=== PATIENT | female | born 1985 | race Caucasian/White ===

== ENCOUNTER → 2017-05-26 | Outpatient (CLI) | payer BC ==
[~2017-05-26] MED LIST: OXYC1TAB63 PO; PREN1CAP28 PO
== END ==
LOC: HPND 07:42
PROVIDERS: ATTEND Obstetrics & Gynecology
DX: O30.043 Twin pregnancy, dichorionic/diamniotic, third trimester (principal); O24.414 Gestational diabetes mellitus in pregnancy, insulin controlled; Z3A.00 Weeks of gestation of pregnancy not specified
CPT/HCPCS: 76816

== ENCOUNTER → 2017-06-15 | Emergency (ER) | payer BC ==
[2017-06-15] VITALS (9 sets, daily range): BP systolic 130–148; BP diastolic 83–100; PULSE 102–109; RESP 18; TEMP 98.5
[2017-06-15 14:20] LABS: HEMATOCRIT 33.6 % (35.0-46.0); MEAN CELL VOLUME 76.9 FL (80.0-100.0); MEAN CORPUSCULAR HEMOGLOBIN 24.3 PG (27.0-34.0); MEAN CORPUSCULAR HGB CONC 31.6 % (32.0-36.0); PLATELET COUNT 211 TH/MM3 (150-450); RED BLOOD COUNT 4.37 MIL/MM3 (4.00-5.30); RED CELL DISTRIBUTION WIDTH 16.4 % (11.6-17.2); REVIEW FLAG FINAL; WHITE BLOOD COUNT 8.8 TH/MM3 (4.0-11.0)
[2017-06-15 14:29] LABS: BACTERIA, URINE RARE /hpf; BLOOD, URINE NEG (NEG); COMMENT (UR) CULT NOT INDICATED; CULTURE IF INDICATED CULT NOT INDICATED; GLUCOSE,URINE NEG (NEG); KETONE, URINE NEG (NEG); NITRITE,URINE NEG (NEG); PH, URINE 6.5 (5.0-8.5); SQUAMOUS EPITHELIAL CELL URINE <1 /hpf (0-5); URINE COLOR YELLOW (YELLW/STRAW)
[2017-06-15 14:33] LABS: ANION GAP 10 MEQ/L (5-15); AST (GOT) 18 U/L (15-37); BICARBONATE 20.4 MEQ/L (21.0-32.0); BLOOD UREA NITROGEN 9 MG/DL (7-18); CHLORIDE 107 MEQ/L (98-107); GLOMERULAR FILTRATION RATE 119 ML/MIN (>89); SODIUM (NA) 137 MEQ/L (136-145); URIC ACID 5.5 MG/DL (2.6-6.0)
[2017-06-15 14:34] LABS: ALT (GPT) 11 U/L (10-53)
[2017-06-15 14:37] LABS: ALKALINE PHOSPHATASE 174 U/L (45-117); TOTAL BILIRUBIN ADULT 0.7 MG/DL (0.2-1.0)
--- NOTE | 2017-06-15 14:46 | PD ---
HPI Chief Complaint Blurred vision Travel History International Travel<30 Days: No Contact w/Intl Traveler<30Days: No Known Affected Area: No History of Present Illness HPI 32-year-old 001, IUP at 36 weeks care complicated by a surrogate twin , A1 diabetes mellitus, history of knee surgery, prior delivery The patient presents complaining of a 30 minute period of blurred vision that started at 9 AM when she was walking around [place], doing her shopping. She reports this as blurred vision with visual spots. She denies any right upper quadrant or epigastric pain. She denies any headache at this time. She reports that shortly after this happened her left arm felt a little numb in her fingers were numb but this has entirely resolved. She denies any leaking fluid or vaginal bleeding. She denies any contractions or cramping. She reports good movement. Weeks Gestation: 36 Para: 1 : 2 History Past Medical History Medical History: Denies Significant Hx Obstetric History Obstetric History 001 Full-Term section Past Surgical History Narrative Surgical Knee surgery section Family History Narrative Family History [place], CAD, DM Social History Alcohol Use: No Tobacco Use: No Substance Abuse: No Review of Systems Except as stated in HPI: all other systems reviewed are Neg Eyes: Blurred Vision (now resolved), Visual changes (now resolved) Neurologic: Other (left arm numbness and finger tingling resolved) Physical Exam Vital Signs Date Time Temp Pulse Resp B/P (MAP) Pulse Ox O2 Delivery O2 Flow Rate FiO2 06/15/17 14:16 98.5 06/15/17 14:15 107 18 130/83 (99) 06/15/17 14:15 102 06/15/17 13:10 103 06/15/17 13:05 105 06/15/17 13:00 105 06/15/17 13:00 18 06/15/17 13:00 106 146/99 (115) 06/15/17 12:55 104 06/15/17 12:53 107 148/100 (116) 06/15/17 12:50 102 06/15/17 12:45 109 Narrative GENERAL: Well-nourished, well-developed patient. SKIN: Warm and dry. HEAD: Normocephalic and atraumatic. EYES: No scleral icterus. No injection or drainage. ENT: No nasal drainage noted. Mucous membranes pink. Airway patent. NECK: Supple, trachea midline. No JVD. CARDIOVASCULAR: Regular rate and rhythm without murmurs, gallops, or rubs. RESPIRATORY: Breath sounds equal bilaterally. No accessory muscle use. BREASTS: Deferred ABDOMEN/GI: Abdomen soft, non-tender, bowel sounds present, no rebound, no guarding Gravid GENITOURINARY: External Genitalia: intact and normal in appearance. Normal BUS glands. Physiologic discharge. Grossly normal rugae. No cervical or vaginal masses appreciated. SVE heart tones: Both fetuses are noted to have reassuring testing with heart tones baseline in the 130s to 140s, moderate long-term variability, good accelerations, no decelerations noted for either fetus both fetuses have a reactive heart rate tracing EXTREMITIES: No cyanosis or edema. BACK: Nontender without obvious deformity. No CVA tenderness. NEUROLOGICAL: Awake and alert. Motor and sensory grossly within normal limits. Five out of 5 muscle strength in all muscle groups. Normal speech. Musculoskeletal: Grossly normal range of motion, gait, muscle strength Psychiatric: grossly normal memory and affect Data Data Orders Orders Vital Signs (Adult) .ON ADMISSION (06/15/17 13:04) ^ Labor Status (06/15/17 13:04) Urinalysis - C+S If Indicated (06/15/17 13:04) ^ Non Stress Test (06/15/17 13:04) Cbc No Diff, Includes Plts (06/15/17 13:04) Comprehensive Metabolic Panel (06/15/17 13:04) Uric Acid (06/15/17 13:04) Protein Creat Ratio, Random Ur (06/15/17 13:04) Labs Laboratory Tests Test 06/15/17 12:45 06/15/17 13:08 Urine Color YELLOW Urine Turbidity CLEAR Urine pH 6.5 Urine Specific [place] 1.012 Urine Protein NEG Urine Glucose (UA) NEG Urine Ketones NEG Urine Occult Blood NEG Urine Nitrite NEG Urine Bilirubin NEG Urine Urobilinogen LESS THAN 2.0 Urine Leukocyte Esterase NEG Urine Squamous Epithelial Cells <1 Urine Bacteria RARE Microscopic Urinalysis Comment CULT NOT INDICATED White Blood Count 8.8 Red Blood Count 4.37 Hemoglobin 10.6 Hematocrit 33.6 Mean Corpuscular Volume 76.9 Mean Corpuscular Hemoglobin 24.3 Mean Corpuscular Hemoglobin Concent 31.6 Red Cell Distribution Width 16.4 Platelet Count 211 Mean Platelet Volume 8.9 Blood Urea Nitrogen 9 Creatinine 0.58 Random Glucose 62 Total Protein 6.2 Albumin 2.3 Calcium Level 9.7 Uric Acid 5.5 Alkaline Phosphatase 174 Aspartate Amino Transf (AST/SGOT) 18 Alanine Aminotransferase (ALT/SGPT) 11 Total Bilirubin 0.7 Sodium Level 137 Potassium Level 4.0 Chloride Level 107 Carbon Dioxide Level 20.4 Anion Gap 10 Estimat Glomerular Filtration Rate 119 MDM Plan Assessment/plan: 1. IUP at 36 weeks 2. Twin IUP 3. Elevated blood pressures with visual changes: Visual changes of resolved and laboratory testing with normal with PC ratio 0.25 and other normal laboratory testing. There is no evidence of preeclampsia at this time. The patient is given strict preeclampsia precautions. The patient's will collect a 24-hour urine at home as confirmatory testing. Patient given modified bedrest at home. 4. History of prior delivery: patient interested in , has discussed with Dr. Amato 5. well-being: Reassuring testing with reactive NST for both fetuses, FHR reassuring and appropriate for gestational age, kick counts daily 6. Surrogate 7. History of knee surgery 8. A1 diabetes: Continue diabetic diet 9. well-being: Reassuring testing with reactive NST for both fetuses. FHR was reassuring and appropriate for gestational age. Reactive NST. kick counts daily. 10. Follow-up with Dr. Amato and 3-4 days or sooner if needed Kelly Bynum MD Jun 15, 2017 14:46
--- NOTE | 2017-06-15 15:03 | HHI.PR ---
Subjective Remarks NST report Indications: 1. IUP at 36 weeks, 2. Elevated blood pressures, 3. Prior delivery, 4. Twin IUP, 5. A1 diabetes mellitus heart rate tracing is reactive with baseline for both fetuses in the 130s to 140s, good accelerations noted with moderate long-term variability, no decelerations. FHR is reassuring and appropriate for gestational age. Final diagnosis:1. IUP at 36 weeks, 2. Elevated blood pressures without evidence of preeclampsia, likely gestational hypertension, 3. Prior delivery, 4. Twin IUP, 5. A1 diabetes mellitus Follow-up: Follow-up as clinically indicated Objective Vital Signs Date Time Temp Pulse Resp B/P (MAP) Pulse Ox O2 Delivery O2 Flow Rate FiO2 06/15/17 14:16 98.5 06/15/17 14:15 107 18 130/83 (99) 06/15/17 14:15 102 06/15/17 13:10 103 06/15/17 13:05 105 06/15/17 13:00 105 06/15/17 13:00 18 06/15/17 13:00 106 146/99 (115) 06/15/17 12:55 104 06/15/17 12:53 107 148/100 (116) 06/15/17 12:50 102 06/15/17 12:45 109 Result Diagram: 06/15/17 1308 06/15/17 1308 Kelly Bynum MD Jun 15, 2017 15:03
== END | disposition home or self-care (01) ==
LOC: HOBED 12:17
DX: O26.93 Pregnancy related conditions, unspecified, third trimester (principal); H53.8 Other visual disturbances; R03.0 Elevated blood-pressure reading, without diagnosis of hypertension; O24.410 Gestational diabetes mellitus in pregnancy, diet controlled; O30.003 Twin pregnancy, unspecified number of placenta and unspecified number of amniotic sacs, third trimester; Z3A.36 36 weeks gestation of pregnancy
CPT/HCPCS: 59025; 80053; 81001; 82570; 84156; 84550; 85027

== ENCOUNTER 2017-06-20 20:48 | Emergency (ER) | payer BC ==
[2017-06-20 21:45] VITALS: BP 125/84; PULSE 101
[2017-06-20 22:04] LABS: HEMATOCRIT 31.8 % (35.0-46.0); MEAN CELL VOLUME 76.1 FL (80.0-100.0); MEAN CORPUSCULAR HEMOGLOBIN 24.7 PG (27.0-34.0); MEAN CORPUSCULAR HGB CONC 32.5 % (32.0-36.0); PLATELET COUNT 215 TH/MM3 (150-450); RED BLOOD COUNT 4.17 MIL/MM3 (4.00-5.30); RED CELL DISTRIBUTION WIDTH 16.4 % (11.6-17.2); REVIEW FLAG FINAL; WHITE BLOOD COUNT 8.7 TH/MM3 (4.0-11.0)
[2017-06-20 22:14] LABS: ANION GAP 9 MEQ/L (5-15); AST (GOT) 21 U/L (15-37); BICARBONATE 21.5 MEQ/L (21.0-32.0); BLOOD UREA NITROGEN 13 MG/DL (7-18); CHLORIDE 107 MEQ/L (98-107); GLOMERULAR FILTRATION RATE 90 ML/MIN (>89); POTASSIUM 4.1 MEQ/L (3.5-5.1); SODIUM (NA) 137 MEQ/L (136-145); URIC ACID 5.8 MG/DL (2.6-6.0)
[2017-06-20 22:15] LABS: ALT (GPT) 12 U/L (10-53)
[2017-06-20 22:17] LABS: ALKALINE PHOSPHATASE 177 U/L (45-117); TOTAL BILIRUBIN ADULT 0.6 MG/DL (0.2-1.0)
--- NOTE | 2017-06-20 22:31 | PD ---
HPI Chief Complaint elevated BP/MULLIGAN Date Seen: Jun 20, 2017 Time Seen: 20:45 Travel History International Travel<30 Days: No Contact w/Intl Traveler<30Days: No Known Affected Area: No History of Present Illness HPI Pt is a 32y/o @ 36.5wks with raymond twins (embryo transfer surrogate) who presents for elevated BPs/MULLIGAN. She states that last she had elevated pressures in clinic and was sent to triage. She had labs drawn and completed a 24hr urine protein which resulted as 308mg of protein. She is scheduled for a rCS on . Today she states that she had a mild headache (4/10). She took tylenol and it improved (/10). 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 She denies LOF, VB, or ctx. + FMx2. Weeks Gestation: 36 Para: 1 : 2 History Past Medical History Medical History: Denies Significant Hx Obstetric History Obstetric History 1. CS for failed IOL 2. current, surrogate for raymond twins Past Surgical History Narrative Surgical CSx1 Family History Family History: Negative Social History Alcohol Use: No Tobacco Use: No Substance Abuse: No Allergies-Medications Narrative Medication PNV Review of Systems Except as stated in HPI: all other systems reviewed are Neg Physical Exam Vital Signs Date Time Temp Pulse Resp B/P (MAP) Pulse Ox O2 Delivery O2 Flow Rate FiO2 06/20/17 21:45 101 125/84 (98) Narrative GENERAL: Well-nourished, well-developed patient. SKIN: Warm and dry. HEAD: Normocephalic and atraumatic. EYES: No scleral icterus. No injection or drainage. ABDOMEN/GI: Abdomen soft, non-tender, gravid EXTREMITIES: No cyanosis, trace edema FHT's: Category: 1 Baseline: 135, 155 Reactive: x2 Variability: moderate x2 Decels: mild variable x1 on baby a TOCO: occasional ctx not felt by pt Data Data Vital Signs Reviewed: Yes Orders Orders Vital Signs (Adult) .ON ADMISSION (06/20/17 21:41) ^ Labor Status (06/20/17 21:41) Urinalysis - C+S If Indicated (06/20/17 21:41) ^ Non Stress Test (06/20/17 21:41) Cbc No Diff, Includes Plts (06/20/17 21:41) Comprehensive Metabolic Panel (06/20/17 21:41) Uric Acid (06/20/17 21:41) Ed Discharge Order (06/20/17 22:29) Labs Laboratory Tests Test 06/20/17 21:35 White Blood Count 8.7 Red Blood Count 4.17 Hemoglobin 10.3 Hematocrit 31.8 Mean Corpuscular Volume 76.1 Mean Corpuscular Hemoglobin 24.7 Mean Corpuscular Hemoglobin Concent 32.5 Red Cell Distribution Width 16.4 Platelet Count 215 Mean Platelet Volume 8.8 Blood Urea Nitrogen 13 Creatinine 0.74 Random Glucose 82 Total Protein 5.9 Albumin 2.3 Calcium Level 8.6 Uric Acid 5.8 Alkaline Phosphatase 177 Aspartate Amino Transf (AST/SGOT) 21 Alanine Aminotransferase (ALT/SGPT) 12 Total Bilirubin 0.6 Sodium Level 137 Potassium Level 4.1 Chloride Level 107 Carbon Dioxide Level 21.5 Anion Gap 9 Estimat Glomerular Filtration Rate 90 MDM Plan 32y/o @ 36.5wks with mild preE, A1DM, h/o CSx1, raymond twin gestation, and surrogate . Pt with mild range BPs. Labs stable. MULLIGAN improved with tylenol. Pt advised that she does not meet "severe" criteria and delivery at 37wks is appropriate. FHT cat 1 x2. Precautions reviewed. Diagnosis Diagnosis: Primary Impression: in person acting as gestational surrogate Additional Impressions: Twin in third trimester Gestational diabetes Obesity Pre-eclampsia affecting , antepartum History of delivery, currently 36 weeks gestation of Disposition: 01 DISCHARGE HOME Condition: Stable Patient Instructions: General Instructions, Having Your Baby: The Labor Process (GEN), Movement (ED) Departure Forms: Tests/Procedures Harvey Argueta MD Jun 20, 2017 22:31
== END 2017-06-20 22:48 | disposition home or self-care (01) ==
LOC: HOBED 20:48
DX: O14.93 Unspecified pre-eclampsia, third trimester (principal); O24.419 Gestational diabetes mellitus in pregnancy, unspecified control; O99.213 Obesity complicating pregnancy, third trimester; O30.043 Twin pregnancy, dichorionic/diamniotic, third trimester; Z3A.36 36 weeks gestation of pregnancy
CPT/HCPCS: 59025; 80053; 84550; 85027

== ENCOUNTER 2017-06-22 05:27 | Inpatient (IN) | payer BC ==
--- NOTE | 2017-06-19 16:25 | MH ---
cc: KANDACE CHAVARRIA DATE OF ADMISSION 06/22/2017 DATE OF 1985 DATE OF PROCEDURE June 22 SCHEDULED PROCEDURE Repeat low transverse segment section. INDICATIONS 37-week twins with mildly elevated blood pressure, prior section. 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 By an EDC of 07/13 she will be 37 weeks on . Over the last week she has had mild elevation in her blood pressure 150/80 with a little bit of trace protein. She has minimal edema. She denies nausea, vomiting, headaches, blurred vision or right upper quadrant tenderness. She has had a full pre-eclamptic workup and had 300 mg of protein in the urine with all other indices entirely normal. Her cervix is long, closed, firm, posterior and high. The 's are vertex, vertex and there is no significant growth discordancy. She has had no labor. She does not smoke, drink or use illicit drugs. Her obstetrical history is significant for one term 2 years ago. She had a failed induction and a section. Initially she desired but right now with her increasing symptoms of blood pressure elevation and feeling poorly with a non inducible cervix we are moving forward with a repeat low transverse segment section. Her general health is good. There is no other chronic or systemic illnesses. She does not smoke, drink or use illicit drugs. Her Group B strep is negative. Her blood type is O+. Her hemoglobin was 13.3. Her Pap smear is normal. She is nonimmune to chickenpox but immune to [place] measles. Cultures were all negative. Drug screens were negative. She failed her one-hour Glucola but the three-hour Glucola was normal. Biophysical profile on June 19 is entirely reassuring with both babies getting 8/8 biophysical profile. Amniotic fluid for these infants was 5.63 and 5.83. Both placentas are grade 3 with multiple calcifications. IMPRESSION At this point is early term twin intrauterine with elevated blood pressure, minimal proteinuria and a completely uninducible cervix. History of previous section for failed induction with lack of cervical change. PLAN The plan is to proceed with a repeat low transverse segment section on . Risks, benefits, expectations, alternatives have all been discussed in detail. She and the surrogate family understand the indications and agreed to proceed. Kandace Chavarria MD PPC/KK /3:56 PM /4:12 PM
[~2017-06-22] VITALS: Ht 154.9 cm; Wt 85.0 kg
[2017-06-22] VITALS (9 sets, daily range): BP systolic 139–156; BP diastolic 85–105; PULSE 72–95; RESP 16–20; TEMP 97.5–98.7; O2SAT 95–98
[2017-06-22] MEDS ORDERED: PREN1CAP28 PO (06:21)
[2017-06-22] MEDS ORDERED: LACTATED RINGER'S 1000 ML IV ONE (06:45)
[2017-06-22] MEDS: LACTATED RINGER'S 1000 ML IV SCH ×2 (06:45→12:00)
[2017-06-22] MEDS ORDERED: CLINDAMYCIN 600 MG/NS 100 ML IV SCH ×2 (06:45)
[2017-06-22] MEDS ORDERED: CITRIC ACID-SODIUM CITRATE LIQ 30 ML UDC PO SCH (06:45)
[2017-06-22 06:52] LABS: BACTERIA, URINE OCC /hpf; BLOOD, URINE NEG (NEG); COMMENT (UR) CULT NOT INDICATED; CULTURE IF INDICATED CULT NOT INDICATED; GLUCOSE,URINE NEG (NEG); KETONE, URINE NEG (NEG); MUCUS URINE FEW /lpf (OCC); NITRITE,URINE NEG (NEG); SQUAMOUS EPITHELIAL CELL URINE 4 /hpf (0-5); URINE COLOR YELLOW (YELLW/STRAW)
[2017-06-22 06:52] LABS: AUTOMATED NEUTROPHIL # 5.1 TH/MM3 (1.8-7.7); BASOPHIL % 0.4 % (0.0-2.0); EOSINOPHIL # 0.1 TH/MM3 (0-0.4); EOSINOPHIL % 0.9 % (0.0-4.0); HEMATOCRIT 33.7 % (35.0-46.0); HEMO FLAGS DIFF FINAL; LYMPHOCYTE # 2.8 TH/MM3 (1.0-4.8); MEAN CELL VOLUME 76.1 FL (80.0-100.0); MEAN CORPUSCULAR HEMOGLOBIN 24.6 PG (27.0-34.0); MEAN CORPUSCULAR HGB CONC 32.3 % (32.0-36.0); MONO % 7.3 % (0.0-8.0); NEUT % 59.4 % (16.0-70.0); PLATELET COUNT 225 TH/MM3 (150-450); RED BLOOD COUNT 4.44 MIL/MM3 (4.00-5.30); RED CELL DISTRIBUTION WIDTH 16.5 % (11.6-17.2); WHITE BLOOD COUNT 8.6 TH/MM3 (4.0-11.0)
[2017-06-22] MEDS ORDERED: ACETAMINOPHEN 1000 MG/100 ML 100 ML IV ONE ×3 (07:00→09:30)
[2017-06-22 07:15] LABS: ANION GAP 9 MEQ/L (5-15); AST (GOT) 22 U/L (15-37); BICARBONATE 21.8 MEQ/L (21.0-32.0); BLOOD UREA NITROGEN 13 MG/DL (7-18); CHLORIDE 107 MEQ/L (98-107); GLOMERULAR FILTRATION RATE 96 ML/MIN (>89); POTASSIUM 4.2 MEQ/L (3.5-5.1); SODIUM (NA) 138 MEQ/L (136-145)
[2017-06-22 07:16] LABS: ALT (GPT) 13 U/L (10-53)
[2017-06-22 07:18] LABS: ALKALINE PHOSPHATASE 199 U/L (45-117); TOTAL BILIRUBIN ADULT 0.6 MG/DL (0.2-1.0)
[2017-06-22] MEDS ORDERED: CLINDAMYCIN PHOS 600 MG/4 ML VIAL ONE (07:29)
[2017-06-22] MEDS ORDERED: SODIUM CHLORIDE 0.9% FLUSH 10 ML FLUSH IV FLUSH PRN ×2 (08:45→09:30)
[2017-06-22] MEDS ORDERED: OXYTOCIN 30 UNITS-500ML PREMIX 500 ML IV ONE ×2 (08:45→09:30)
[2017-06-22] MEDS ORDERED: ZOLPIDEM TARTRATE 5 MG TAB PO PRN ×2 (08:45→09:30)
[2017-06-22] MEDS ORDERED: SIMETHICONE 80 MG CHEWABLE TAB PO PRN (08:45)
[2017-06-22] MEDS ORDERED: ONDANSETRON HCL 4 MG/2 ML VIAL IV PUSH PRN ×2 (08:45→09:30)
--- NOTE | 2017-06-22 08:45 | PD.OB.DELI ---
Procedure Note Section Procedure Pre Op Diagnosis: (1) Twin delivered by section in hospital Post Op Diagnosis: Performed by Kelley Amato Procedure: Repeat Low Transverse Sec, Other (BTL (salpingectomy)) Indication for delivery: Desired elective repeat Previous condition: None Informed consent obtained: For anesthesia, For procedure, Other Confirmed correct: Patient, Procedure, Site, Time-out taken Anesthesia: Spinal Medication prior to procedure: As documented in eMAR Monitoring during procedure: Blood pressure monitoring Urinary catheter: Inserted using sterile technique, To dependent drainage Sterile preparation: In usual fashion Position: Supine with wedge to right side Operative Features Skin Incision: Pfannenstiel Uterine Incision: Low transverse w/knife / blunt ext Membranes Ruptured: Artificially Presentation: Occiput anterior, Occiput posterior Delivery date: Jun 22, 2017 Delivery time: 08:45 Delivery of infant: Assisted Infant: Male, Female, Multiple One Minute : 9 Five Minute : 9 Weight: 6 1 and 6 14 Status of : Viable, Cord blood, Nursery present Placenta delivered: Intact Medications: Antibiotics Estimated blood loss: 500 Procedure tolerated: Well Maternal Condition: Stable Condition: Stable Procedure in detail dictated Kelley Amato MD Jun 22, 2017 08:45
[2017-06-22] MEDS: SODIUM CHLORIDE 0.9% FLUSH 10 ML FLUSH IV FLUSH SCH (09:00)
[2017-06-22] MEDS ORDERED: oxyCODONE/ACETAMINOPHEN 5 MG/325 MG TAB PO PRN ×2 (09:30)
[2017-06-22] MEDS: KETOROLAC TROMETHAMINE 60 MG/2 ML (IM) VIAL IM PRN (11:01)
[2017-06-22] MEDS ORDERED: EPIDURAL-DIPHENHYDRAMINE HCL 50 MG CAP PO PRN (11:30)
[2017-06-22] MEDS ORDERED: EPIDURAL-DO NOT ADMINISTER ANTICOAGULANTS PRN (11:30)
[2017-06-22] MEDS ORDERED: EPIDURAL-DIPHENHYDRAMINE HCL 50 MG/ML VIAL IV PUSH PRN (11:30)
[2017-06-22] MEDS ORDERED: EPIDURAL-NALOXONE HCL 0.4 MG/ML AMP IV PUSH PRN (11:30)
[2017-06-22] MEDS ORDERED: EPIDURAL-NO SYSTEMIC NARCOTICS PRN (11:30)
--- NOTE | 2017-06-22 13:29 | MP ---
cc: KELLEY CHAVARRIA DATE OF SURGERY 06/22/2017 PREOPERATIVE DIAGNOSIS 37-week intrauterine twins, grade 3 placenta, prior section x2, desired repeat . POSTOPERATIVE DIAGNOSIS 37-week intrauterine twins, grade 3 placenta, prior section x2, desired repeat . PROCEDURE Repeat section with tubal ligation ANESTHESIA Spinal with Duramorph SURGEON Kelley Chavarria MD RN CASE MANAGEMENT Olga Price FINDINGS A living male was delivered from [place] with clear fluid and a loose nuchal cord. He weighed 6 pounds 1 ounce and his 's were 8 and 9. A living female was delivered from the same position with a nuchal cord x1 's were 8 and 9 and her weight was 6 pounds 14 ounces. The placentas were both anterior low-lying, but easily removed and sent to [facility] for harvesting. The uterus clamped down nicely and was closed with chromic in a running interlocking fashion and with a second horizontal imbricating layer and then the tubes were tied. There was minimal bleeding for a repeat section. Sponge, instrument, needle count correct and mom and children tolerated the procedure well. PROCEDURE The patient was taken to the operating room with the surrogate mom with the parent taking the children in attendance and the patient's . She was administered spinal with Duramorph. She was placed on her side and then on her back with weight off the vena cava. She was prepped and draped in the usual sterile fashion in the dorsal supine position. Sequential stockings were placed and she had a Henderson catheter on. After assuring adequate analgesia, a Pfannenstiel incision was made with a knife and carried down through to the rectus fascia. The rectus fascia was taken off the rectus muscle which showed some rectus diastasis. The rectus muscle was taken off the rectus fascia superiorly and inferiorly. The parietal peritoneum was entered sharply. A bladder flap was created off the lower uterine segment. Twin A's amniotic sac was encountered as the bladder gently entered into the intrauterine cavity with copious fluid noted. He had a loose nuchal cord. He was delivered from [place] with clear fluid. The cord was clamped 45-second delay, cut and the was handed to the neonatology team in attending. This was repeated with baby B who is a little girl and the cord bloods were obtained. The placenta was removed manually with three-vessel cord. The uterus was exteriorized, cleaned with a lap sponge and closed with chromic in a running interlocking fashion with a second horizontal imbricating layer. The uterus was then returned in the peritoneal cavity and copious irrigation was performed and all areas were noted to be hemostatic. Actually prior to putting the uterus back in, the right tube was grasped and the fimbriated portion of tube separate from the mesosalpinx and then the entire tube was excised with the proximal edge being tied off x3 with plane. This was repeated on the opposite side without difficulty and there was no bleeding. The uterus was carefully placed into the intraperitoneal cavity so as not to disrupt the stitches. Irrigation was performed. All areas appeared to be hemostatic. The rectus muscles were approximated to repair her diastasis. The fascia was closed with 1-Vicryl, the subcutaneous layer was closed with 3-0 plain and the skin was closed with 4-0 Vicryl on a Shane needle in a subcuticular fashion. Estimated blood loss was 500. Sponge, instrument and needle counts were correct. She went to the recovery room in stable condition. MD OMAR Narayan/LENARD /12:54 PM /1:08 PM
[2017-06-22] MEDS ORDERED: LACTATED RINGER'S 1000 ML INJ 1,000 ML IV SCH ×2 (13:40→14:28)
[2017-06-22] MEDS ORDERED: LACTATED RINGER'S 1000 ML INJ 1,000 ML IV ONE (14:04)
[2017-06-22] MEDS ORDERED: MORPHINE SULFATE PF 5 MG/10 ML VIAL ONE (14:04)
[2017-06-22] MEDS ORDERED: OXYTOCIN 10 UNIT/ML AMP IV ONE (14:04)
[2017-06-22] MEDS ORDERED: PROPOFOL 200 MG/20 ML AMP IV ONE (14:04)
[2017-06-22] MEDS ORDERED: DEXAMETHASONE SOD PHOS 4 MG/ML VIAL IV ONE (14:04)
[2017-06-22] MEDS ORDERED: PHENYLEPH/NS 1000 MCG/10 ML SYR IV ONE (14:04)
[2017-06-22] MEDS ORDERED: ONDANSETRON HCL 4 MG/2 ML VIAL IV PUSH ONE (14:04)
[2017-06-22] MEDS: ACETAMINOPHEN 1000 MG/100 ML 100 ML IV SCH (15:48)
[2017-06-22] MEDS ORDERED: OXYTOCIN 30 UNITS-500ML PREMIX 500 ML IV PRN ×2 (18:45→19:30)
[2017-06-22] MEDS ORDERED: SODIUM CHLORIDE 0.9% FLUSH 10 ML FLUSH IV FLUSH SCH (21:00)
[2017-06-23] MEDS: ACETAMINOPHEN 1000 MG/100 ML 100 ML IV SCH (00:08)
[2017-06-23 04:40] LABS: AUTOMATED NEUTROPHIL # 10.1 TH/MM3 (1.8-7.7); BASOPHIL % 0.2 % (0.0-2.0); HEMATOCRIT 25.8 % (35.0-46.0); HEMO FLAGS DIFF FINAL; LYMPH % 17.2 % (9.0-44.0); LYMPHOCYTE # 2.3 TH/MM3 (1.0-4.8); MEAN CELL VOLUME 76.3 FL (80.0-100.0); MEAN CORPUSCULAR HEMOGLOBIN 24.9 PG (27.0-34.0); MEAN CORPUSCULAR HGB CONC 32.6 % (32.0-36.0); MONO % 7.6 % (0.0-8.0); PLATELET COUNT 186 TH/MM3 (150-450); RED BLOOD COUNT 3.38 MIL/MM3 (4.00-5.30); RED CELL DISTRIBUTION WIDTH 16.4 % (11.6-17.2); WHITE BLOOD COUNT 13.5 TH/MM3 (4.0-11.0)
--- NOTE | 2017-06-23 08:25 | HHI.OB ---
Subjective Post Operative Day: 1 Remarks Doing well moderate discomfort discussed low hemoglobin Objective Vitals/I&O Vital Signs Date Time Temp Pulse Resp B/P (MAP) Pulse Ox O2 Delivery O2 Flow Rate FiO2 06/22/17 19:50 98.4 80 18 139/85 (103) 95 06/22/17 16:00 98.7 79 18 06/22/17 10:43 97.5 72 18 156/105 (122) 06/22/17 10:19 97.8 20 98 Result Diagram: 06/23/17 0408 06/22/17 0600 Objective Remarks GENERAL: Well-nourished, well-developed patient. CARDIOVASCULAR: Regular rate and rhythm without murmurs, gallops, or rubs. RESPIRATORY: Breath sounds equal bilaterally. No accessory muscle use. ABDOMEN/GI: Abdomen soft, non-tender, bowel sounds present. bandage: Clean, dry and intact. Fundus: Firm, non-tender at umbilicus. GENITOURINARY: Light to moderate bleeding. EXTREMITIES: No cyanosis or edema, non-tender, without signs of DVT. Medications and IVs Current Medications Medications (Trade) Dose Ordered Sig/Latoya Route Start Time Stop Time Status Last Admin Lactated Ringer's 1,000 ml @ 150 mls/hr Q6H40M IV 06/22/17 06:45 06/22/17 12:00 (Bicitra Liq) 30 ml FRANCHISE SALES REPRESENTATIVE PO 06/22/17 06:45 06/25/17 06:44 06/22/17 07:18 Clindamycin Phosphate 600 mg/ Sodium Chloride 104 ml @ 208 mls/hr FRANCHISE SALES REPRESENTATIVE IV 06/22/17 06:45 Lactated Ringer's 1,000 ml @ 100 mls/hr Q10H IV 06/22/17 13:40 06/23/17 09:39 (NS Flush) 2 ml BID IV FLUSH 06/22/17 09:00 (NS Flush) 2 ml UNSCH PRN IV FLUSH 06/22/17 08:45 (Mylicon Chew) 80 mg QID PRN PO 06/22/17 08:45 (Toradol Inj) 30 mg Q6H PRN IM 06/22/17 11:00 06/23/17 10:59 06/22/17 11:01 (Percocet 5-325 Mg) 1 tab Q4H PRN PO 06/22/17 08:45 (Percocet 5-325 Mg) 2 tab Q4H PRN PO 06/22/17 08:45 (Ambien) 5 mg HS PRN PO 06/22/17 08:45 (M-M-R Ii Inj) 0.5 ml ONCE ONCE SQ 06/23/17 16:00 06/23/17 16:01 (Boostrix Inj) 0.5 ml ONCE ONCE IM 06/23/17 16:00 06/23/17 16:01 (Zofran Inj) 4 mg Q6H PRN IV PUSH 06/22/17 08:45 Oxytocin 500 ml @ 100 mls/hr UNSCH X1 PRN IV 06/22/17 19:30 06/23/17 19:29 (Kate-Colace) 2 tab Q12H PRN PO 06/22/17 09:30 Miscellaneous Information NO SYSTEMIC NARCOTICS TO BE GIVEN FO... UNSCH PRN .XX 06/22/17 11:30 06/23/17 11:29 (Narcan Inj) 0.4 mg UNSCH PRN IV PUSH 06/22/17 11:30 06/23/17 11:29 (Benadryl Inj) 25 mg Q6H PRN IV PUSH 06/22/17 11:30 06/23/17 11:29 06/22/17 11:58 (Benadryl) 50 mg Q6H PRN PO 06/22/17 11:30 06/23/17 11:29 Miscellaneous Information ALL NURSING DEPARTMENTS UNSCH PRN .XX 06/22/17 11:30 06/23/17 11:29 Assessment/Plan Assessment and Plan stable POD 1 needs iron possible discharge POD 2 Kelley Amato MD Jun 23, 2017 08:25
[2017-06-23] MEDS: KETOROLAC TROMETHAMINE 60 MG/2 ML (IM) VIAL IM PRN (08:51)
[2017-06-23] MEDS ORDERED: IRON SUCROSE INJ 100 MG in SODIUM CHLORIDE 0.9% INJ 100 ML IV ONE (09:30)
[2017-06-23 11:54] VITALS: BP 129/70; PULSE 90; RESP 18; TEMP 97.9; O2SAT 99
[2017-06-23] MEDS: SODIUM CHLORIDE 0.9% FLUSH 10 ML FLUSH IV FLUSH SCH ×2 (12:00→21:00)
[2017-06-23] MEDS: oxyCODONE/ACETAMINOPHEN 5 MG/325 MG TAB PO PRN ×2 (15:43→20:07)
[2017-06-23 16:00] VITALS: BP 162/89; PULSE 83; RESP 18; TEMP 98.4
[2017-06-23] MEDS ORDERED: MEASLES, MUMPS, RUBELLA VACCINE 0.5 ML VIAL SQ ONE (16:00)
[2017-06-23] MEDS ORDERED: DIPHTH/TETANUS/ACEL PERTUSSIS (BOOSTER) 0.5 ML VIAL/PFS IM ONE (16:00)
[2017-06-23 16:21] VITALS: BP 136/75; PULSE 18; RESP 18
[2017-06-23] MEDS: DOCUSATE SODIUM 50 MG/SENNA 8.6 MG TAB PO PRN (20:07)
[2017-06-23] MEDS: LACTATED RINGER'S 1000 ML IV SCH (21:32)
[2017-06-24] MEDS: oxyCODONE/ACETAMINOPHEN 5 MG/325 MG TAB PO PRN ×6 (00:52→22:06)
[2017-06-24] MEDS: LACTATED RINGER'S 1000 ML IV SCH (05:25)
[2017-06-24 08:15] VITALS: BP 149/86; PULSE 101; RESP 20; TEMP 98.4
--- NOTE | 2017-06-24 09:29 | HHI.OB ---
Subjective Post Operative Day: 2 Remarks moving slowly and would like extra day babies have left with adoptive parents Objective Vitals/I&O Vital Signs Date Time Temp Pulse Resp B/P (MAP) Pulse Ox O2 Delivery O2 Flow Rate FiO2 06/24/17 08:15 101 149/86 (107) 06/24/17 08:15 98.4 20 06/23/17 16:21 18 06/23/17 16:21 18 136/75 (95) 06/23/17 16:00 98.4 06/23/17 16:00 83 18 162/89 (113) 06/23/17 11:54 97.9 99 06/23/17 11:54 90 18 129/70 (89) Result Diagram: 06/23/17 0408 06/22/17 0600 Objective Remarks GENERAL: Well-nourished, well-developed patient. CARDIOVASCULAR: Regular rate and rhythm without murmurs, gallops, or rubs. RESPIRATORY: Breath sounds equal bilaterally. No accessory muscle use. ABDOMEN/GI: Abdomen soft, non-tender, bowel sounds present. bandage: Clean, dry and intact. Fundus: Firm, non-tender at umbilicus. GENITOURINARY: Light to moderate bleeding. EXTREMITIES: No cyanosis or edema, non-tender, without signs of DVT. Medications and IVs Current Medications Medications (Trade) Dose Ordered Sig/Latoya Route Start Time Stop Time Status Last Admin Lactated Ringer's 1,000 ml @ 150 mls/hr Q6H40M IV 06/22/17 06:45 06/22/17 12:00 (Bicitra Liq) 30 ml PHOTOTYPESETTING EQUIPMENT MONITOR PO 06/22/17 06:45 06/25/17 06:44 06/22/17 07:18 Clindamycin Phosphate 600 mg/ Sodium Chloride 104 ml @ 208 mls/hr PHOTOTYPESETTING EQUIPMENT MONITOR IV 06/22/17 06:45 (NS Flush) 2 ml BID IV FLUSH 06/22/17 09:00 06/23/17 12:00 (NS Flush) 2 ml UNSCH PRN IV FLUSH 06/22/17 08:45 (Mylicon Chew) 80 mg QID PRN PO 06/22/17 08:45 (Percocet 5-325 Mg) 1 tab Q4H PRN PO 06/22/17 08:45 06/23/17 15:43 (Percocet 5-325 Mg) 2 tab Q4H PRN PO 06/22/17 08:45 06/24/17 05:32 (Ambien) 5 mg HS PRN PO 06/22/17 08:45 (Zofran Inj) 4 mg Q6H PRN IV PUSH 06/22/17 08:45 (Kate-Colace) 2 tab Q12H PRN PO 06/22/17 09:30 06/23/17 20:07 Assessment/Plan Assessment and Plan stable POD 1 needs iron possible discharge POD 2 POD 2 will stay extra day needs Kelley Hogue MD Jun 24, 2017 09:28
[2017-06-24] MEDS ORDERED: OXYC1TAB63 PO (09:32)
--- NOTE | 2017-06-24 09:32 | HHI.DCPOC ---
Discharge Care Plan Report Symptoms to Your Doctor -Temperature above 100.5 degrees -Redness, of incision or excessive or foul smelling drainage -Unusual pain or calf pain -Increased vaginal bleeding -Painful or difficulty urinating -Feelings of extreme sadness or anxiety after 2 weeks Goals to Promote Your Health * To prevent worsening of your condition and complications * To maintain your health at the optimal level Directions to Meet Your Goals Take your medications as prescribed Follow your dietary instruction Follow activity as directed Ensure plenty of rest for recovery Drink fluids for hydration Keep your appointments as scheduled Take your immunizations and boosters as scheduled If your symptoms worsen call your PCP, if no PCP go to Urgent Care Center or Emergency Room Smoking is Dangerous to Your Health. Avoid second hand smoke Call the 24-hour crisis hotline for domestic abuse at Kelley Amato MD Jun 24, 2017 09:32
[2017-06-24] MEDS: DOCUSATE SODIUM 50 MG/SENNA 8.6 MG TAB PO PRN (18:29)
[2017-06-24] MEDS: LABETALOL HCL 100 MG TAB PO SCH (22:06)
[2017-06-25] MEDS: oxyCODONE/ACETAMINOPHEN 5 MG/325 MG TAB PO PRN ×4 (02:03→10:52)
[2017-06-25] MEDS: DOCUSATE SODIUM 50 MG/SENNA 8.6 MG TAB PO PRN (06:50)
[2017-06-25 08:04] VITALS: BP 142/94; PULSE 86; RESP 20; TEMP 98.3
[2017-06-25] MEDS: LABETALOL HCL 100 MG TAB PO SCH (08:56)
[2017-06-25 11:00] VITALS: BP 127/92; PULSE 84; RESP 16
--- NOTE | 2017-06-25 11:13 | HHI.OB ---
Subjective Post Operative Day: 3 Remarks understandably desires to go home but BPs still somewhat labile need labs to confirm trend downward and to add procardia asked to stay through lunch and if stable or better after lunch she can go home this afternoon. Objective Vitals/I&O Vital Signs Date Time Temp Pulse Resp B/P (MAP) Pulse Ox O2 Delivery O2 Flow Rate FiO2 06/25/17 08:04 98.3 06/25/17 08:04 86 20 142/94 (110) Result Diagram: 06/23/17 0408 06/22/17 0600 Objective Remarks GENERAL: Well-nourished, well-developed patient. CARDIOVASCULAR: Regular rate and rhythm without murmurs, gallops, or rubs. RESPIRATORY: Breath sounds equal bilaterally. No accessory muscle use. ABDOMEN/GI: Abdomen soft, non-tender, bowel sounds present. bandage: Clean, dry and intact. Fundus: Firm, non-tender at umbilicus. GENITOURINARY: Light to moderate bleeding. EXTREMITIES: No cyanosis or edema, non-tender, without signs of DVT. Medications and IVs Current Medications Medications (Trade) Dose Ordered Sig/Latoya Route Start Time Stop Time Status Last Admin Lactated Ringer's 1,000 ml @ 150 mls/hr Q6H40M IV 06/22/17 06:45 06/22/17 12:00 Clindamycin Phosphate 600 mg/ Sodium Chloride 104 ml @ 208 mls/hr SLINGER SEQUINS IV 06/22/17 06:45 (NS Flush) 2 ml BID IV FLUSH 06/22/17 09:00 06/23/17 12:00 (NS Flush) 2 ml UNSCH PRN IV FLUSH 06/22/17 08:45 (Mylicon Chew) 80 mg QID PRN PO 06/22/17 08:45 06/24/17 18:29 (Ambien) 5 mg HS PRN PO 06/22/17 08:45 (Zofran Inj) 4 mg Q6H PRN IV PUSH 06/22/17 08:45 (Kate-Colace) 2 tab Q12H PRN PO 06/22/17 09:30 06/25/17 06:50 (Percocet 5-325 Mg) 1 tab Q4H PRN PO 06/24/17 09:30 06/25/17 06:53 (Percocet 5-325 Mg) 2 tab Q4H PRN PO 06/24/17 09:30 06/25/17 10:52 (Trandate) 100 mg BID PO 06/24/17 21:20 06/25/17 08:56 Assessment/Plan Assessment and Plan stable POD 1 needs iron possible discharge POD 2 POD 2 will stay extra day needs Kelley Hogue MD Jun 25, 2017 11:13
[2017-06-25] MEDS ORDERED: NIFEdipine 30 MG SUSTAINED RELEASE TAB PO SCH (11:15)
== END 2017-06-25 14:47 | disposition home or self-care (01) | DRG 766 ==
LOC: H2EB 05:27 → H1EA 10:33
PROVIDERS: ADMIT Obstetrics & Gynecology; ATTEND Obstetrics & Gynecology
PROC: 10D00Z1 Extraction of Products of Conception, Low, Open Approach (ICD-10-PCS; principal; 2017-06-22)
PROC: 0UB70ZZ Excision of Bilateral Fallopian Tubes, Open Approach (ICD-10-PCS; 2017-06-22)
DX: O30.009 Twin pregnancy, unspecified number of placenta and unspecified number of amniotic sacs, unspecified trimester (principal); Z37.2 Twins, both liveborn; O34.211 Maternal care for low transverse scar from previous cesarean delivery; Z30.2 Encounter for sterilization; O69.81X0 Labor and delivery complicated by cord around neck, without compression, not applicable or unspecified; O71.89 Other specified obstetric trauma; Z3A.37 37 weeks gestation of pregnancy; O26.899 Other specified pregnancy related conditions, unspecified trimester
CPT/HCPCS: 59025; 80053; 81001; 84550; 85025; 85027; 86850; 86900; 86901; 88302; J0131; J1100; J1200; J1756; J1885; J2274; J2370; J2405; J2590; J7120